=== PATIENT | male | born 1965 ===

== ENCOUNTER 2019-04-15 17:44 | Inpatient (IN) | payer OTHER ==
[~2019-04-15] VITALS: Ht 175.3 cm; Wt 95.5 kg
[2019-04-15] MEDS ORDERED: SERT50TA12 PO (17:55)
[2019-04-15] MEDS ORDERED: MECL-160 PO (17:55)
[2019-04-15] MEDS ORDERED: PRAZ2 PO (17:55)
[2019-04-15] MEDS ORDERED: RISP1 PO (17:55)
[2019-04-15] MEDS ORDERED: HYD25 PO (17:55)
[2019-04-15] MEDS ORDERED: SODIUM CHLORIDE 0.9% 1,000 ML IV ONE (18:15)
[2019-04-15] MEDS ORDERED: ONDANSETRON HCL 4 MG/2 ML VIAL IVP ONE (18:15)
[2019-04-15] MEDS ORDERED: MECLIZINE HCL 25 MG TABLET PO ONE (18:15)
[2019-04-15] MEDS ORDERED: ONDANSETRON HCL 4 MG/2 ML VIAL IVP PRN ×2 (18:30→22:30)
[2019-04-15] MEDS ORDERED: ACETAMINOPHEN 325 MG TABLET PO PRN ×2 (18:30→22:30)
[2019-04-15 18:43] LABS: BASOPHILS % (AUTO) 0.6 % (0.0-2.0); EOSINOPHILS % (AUTO) 0.1 % (1.0-6.0); HEMATOCRIT 46.3 % (41-53); HEMOGLOBIN 16.4 g/dL (13.5-17.5); LYMPHOCYTES # (AUTO) 0.7 K/uL (1.0-4.8); MEAN CORPUSCULAR HEMOGLOBIN 31.5 pg (26.0-34.0); MEAN CORPUSCULAR HGB CONC 35.4 G/dL (31.0-37.0); MEAN CORPUSCULAR VOLUME 89 fL (80-100); MONOCYTES # (AUTO) 0.6 K/uL (0.1-1.0); MONOCYTES % (AUTO) 5.7 % (2.0-9.0); NEUTROPHILS # (AUTO) 9.8 K/uL (1.8-7.7); NEUTROPHILS % (AUTO) 87.6 % (40.0-70.0); PLATELET COUNT (AUTO) 219 K/uL (150-450); RED CELL DISTRIBUTION WIDTH 13.3 % (11.5-14.5)
[2019-04-15 18:50] LABS: CALCIUM, TOTAL 9.2 mg/dL (8.8-10.5); CREATININE 1.37 mg/dL (0.60-1.30); POTASSIUM 3.9 mmol/L (3.5-5.1)
[2019-04-15 18:56] LABS: ALBUMIN 3.8 g/dL (3.4-5.0); BILIRUBIN,TOTAL 0.7 mg/dL (0.1-1.0)
[2019-04-15 19:05] VITALS: BP 162/92
[2019-04-15] MEDS: PRAZOSIN HCL 2 MG CAPSULE PO SCH (22:19)
[2019-04-15] MEDS ORDERED: BISACODYL 10 MG RECTAL RECTAL SUPPOSITORY PR PRN (22:30)
[2019-04-15] MEDS ORDERED: HYDROCODONE/ACETAMINOPHEN 5-325 MG TABLET PO PRN (22:30)
[2019-04-15] MEDS ORDERED: ZOLPIDEM TARTRATE 5 MG TABLET PO PRN (22:30)
[2019-04-15] MEDS ORDERED: MAGNESIUM HYDROXIDE SUSPENSION 30 ML UDCUP PO PRN (22:30)
[2019-04-15] MEDS ORDERED: MORPHINE SULFATE 2 MG/ML SYRINGE IVP PRN (22:30)
[2019-04-16] MEDS: HEPARIN SODIUM,PORCINE 5,000 UNITS/ML VIAL SQ SCH ×3 (00:59→15:48)
[2019-04-16 04:40] VITALS: BP 130/78
[2019-04-16 04:54] LABS: AMPHET/METH SCREEN,URINE NEGATIVE (NEGATIVE); BARBITURATE SCREEN, URINE NEGATIVE (NEGATIVE); BENZODIAZEPINES SCREEN,URINE NEGATIVE (NEGATIVE); CANNABINOID SCREEN,URINE NEGATIVE (NEGATIVE); COCAINE SCREEN,URINE NEGATIVE (NEGATIVE); METHADONE SCREEN, URINE NEGATIVE (NEGATIVE); OPIATE SCREEN,URINE NEGATIVE (NEGATIVE)
[2019-04-16 05:14] LABS: PHENCYCLIDINE SCREEN,URINE NEGATIVE (NEGATIVE)
[2019-04-16 07:45] VITALS: BP 142/87
[2019-04-16] MEDS: PANTOPRAZOLE SODIUM 40 MG DR TABLET PO SCH (08:03)
[2019-04-16] MEDS: RisperiDONE 1 MG TABLET PO SCH (08:03)
[2019-04-16] MEDS: DOCUSATE SODIUM 100 MG CAPSULE PO SCH ×2 (08:03→21:00)
[2019-04-16] MEDS: SERTRALINE HCL 50 MG TABLET PO SCH (08:04)
[2019-04-16] MEDS ORDERED: MECLIZINE HCL 25 MG TABLET PO SCH (09:00)
[2019-04-16] MEDS ORDERED: SODIUM CHLORIDE 0.9% 500 ML IV ONE (12:15)
[2019-04-16] MEDS ORDERED: SODIUM CHLORIDE 0.9% 1,000 ML ONE (12:24)
[2019-04-16 15:40] VITALS: BP 145/94
[2019-04-16] MEDS: MECLIZINE HCL 25 MG TABLET PO SCH ×2 (15:48→20:54)
[2019-04-16 15:50] LABS: APPEARANCE,URINE CLEAR (CLEAR); BILIRUBIN,URINE NEGATIVE (NEGATIVE); GLUCOSE, URINE (UA) NEGATIVE (NEGATIVE); KETONES,URINE TRACE mg/dL (NEGATIVE); LEUKOCYTE ESTERASE ,URINE NEGATIVE (NEGATIVE); NITRATE,URINE NEGATIVE (NEGATIVE); OCCULT BLOOD,URINE NEGATIVE (NEGATIVE); PH,URINE 8.5 (5.0-8.0); PROTEIN,URINE NEGATIVE (NEGATIVE); UROBILINOGEN,URINE 0.2 mg/dL (<=1.0)
[2019-04-16 16:01] LABS: BACTERIA,URINE None Seen /HPF (None Seen); RBC,URINE None Seen /HPF (0-2); SQUAMOUS EPITHELIAL CELL,UR Rare /LPF (None Seen); WBC,URINE 0-2 /HPF (0-5)
[2019-04-16 20:38] VITALS: BP 134/81
[2019-04-16] MEDS: PRAZOSIN HCL 2 MG CAPSULE PO SCH (20:54)
[2019-04-17] MEDS: HEPARIN SODIUM,PORCINE 5,000 UNITS/ML VIAL SQ SCH ×3 (00:27→15:31)
[2019-04-17 04:58] VITALS: BP 128/84
[2019-04-17 07:49] VITALS: BP 125/84
[2019-04-17] MEDS: MECLIZINE HCL 25 MG TABLET PO SCH ×3 (08:16→21:02)
[2019-04-17] MEDS: RisperiDONE 1 MG TABLET PO SCH (08:16)
[2019-04-17] MEDS: SERTRALINE HCL 50 MG TABLET PO SCH (08:16)
[2019-04-17] MEDS: DOCUSATE SODIUM 100 MG CAPSULE PO SCH ×2 (08:17→21:02)
[2019-04-17] MEDS: PANTOPRAZOLE SODIUM 40 MG DR TABLET PO SCH (08:17)
[2019-04-17 21:03] VITALS: BP 108/73
[2019-04-18] MEDS: PRAZOSIN HCL 2 MG CAPSULE PO SCH ×2 (00:03→20:27)
[2019-04-18] MEDS: HEPARIN SODIUM,PORCINE 5,000 UNITS/ML VIAL SQ SCH ×3 (00:03→16:43)
[2019-04-18 00:04] VITALS: BP 114/74
[2019-04-18 05:55] VITALS: BP 116/68
[2019-04-18 06:47] LABS: BASOPHILS % (AUTO) 0.6 % (0.0-2.0); EOSINOPHILS % (AUTO) 2.6 % (1.0-6.0); HEMATOCRIT 41.9 % (41-53); HEMOGLOBIN 14.9 g/dL (13.5-17.5); LYMPHOCYTES # (AUTO) 1.1 K/uL (1.0-4.8); LYMPHOCYTES % (AUTO) 17.7 % (22.0-44.0); MEAN CORPUSCULAR HEMOGLOBIN 31.9 pg (26.0-34.0); MEAN CORPUSCULAR HGB CONC 35.7 G/dL (31.0-37.0); MEAN CORPUSCULAR VOLUME 89 fL (80-100); MONOCYTES # (AUTO) 0.7 K/uL (0.1-1.0); MONOCYTES % (AUTO) 11.4 % (2.0-9.0); NEUTROPHILS # (AUTO) 4.1 K/uL (1.8-7.7); NEUTROPHILS % (AUTO) 67.7 % (40.0-70.0); PLATELET COUNT (AUTO) 176 K/uL (150-450); RED BLOOD CELL COUNT(AUTO) 4.68 MIL/uL (4.50-5.90); RED CELL DISTRIBUTION WIDTH 13.2 % (11.5-14.5)
[2019-04-18] MEDS: DOCUSATE SODIUM 100 MG CAPSULE PO SCH ×2 (08:16→20:27)
[2019-04-18] MEDS: ASPIRIN 81 MG CHEWABLE TABLET PO SCH (08:16)
[2019-04-18] MEDS: RisperiDONE 1 MG TABLET PO SCH (08:16)
[2019-04-18] MEDS: SERTRALINE HCL 50 MG TABLET PO SCH (08:16)
[2019-04-18] MEDS: MECLIZINE HCL 25 MG TABLET PO SCH ×3 (08:16→20:27)
[2019-04-18] MEDS: PANTOPRAZOLE SODIUM 40 MG DR TABLET PO SCH (08:16)
[2019-04-18 08:22] VITALS: BP 143/97
[2019-04-18 15:46] VITALS: BP 131/86
[2019-04-18 20:00] VITALS: BP 145/91
[2019-04-19] MEDS: HEPARIN SODIUM,PORCINE 5,000 UNITS/ML VIAL SQ SCH ×3 (01:57→15:41)
[2019-04-19 05:40] VITALS: BP 131/84
[2019-04-19] MEDS: DOCUSATE SODIUM 100 MG CAPSULE PO SCH ×2 (08:42→20:50)
[2019-04-19] MEDS: MECLIZINE HCL 25 MG TABLET PO SCH ×3 (08:42→20:50)
[2019-04-19] MEDS: PANTOPRAZOLE SODIUM 40 MG DR TABLET PO SCH (08:42)
[2019-04-19] MEDS: SERTRALINE HCL 50 MG TABLET PO SCH (08:42)
[2019-04-19] MEDS: ASPIRIN 81 MG CHEWABLE TABLET PO SCH (08:43)
[2019-04-19] MEDS: RisperiDONE 1 MG TABLET PO SCH (08:43)
[2019-04-19 09:04] VITALS: BP 127/80
[2019-04-19] MEDS ORDERED: ASPI81 PO (09:43)
[2019-04-19 15:51] VITALS: BP 138/96
[2019-04-19 20:11] VITALS: BP 132/89
[2019-04-19] MEDS: PRAZOSIN HCL 2 MG CAPSULE PO SCH (20:50)
[2019-04-20] MEDS: HEPARIN SODIUM,PORCINE 5,000 UNITS/ML VIAL SQ SCH (00:01)
[2019-04-20 05:07] VITALS: BP 135/90
== END 2019-04-20 06:41 | DRG 149 ==
LOC: EMS 17:49 → 6S 18:27
PROVIDERS: ADMIT Internal Medicine; ATTEND Internal Medicine
DX: R42 Dizziness and giddiness (principal); N17.9 Acute kidney failure, unspecified; F43.10 Post-traumatic stress disorder, unspecified; D72.829 Elevated white blood cell count, unspecified; F29 Unspecified psychosis not due to a substance or known physiological condition; H91.93 Unspecified hearing loss, bilateral; Z85.72 Personal history of non-Hodgkin lymphomas; Z92.21 Personal history of antineoplastic chemotherapy; Z79.899 Other long term (current) drug therapy
CPT/HCPCS: 70551; 80307; J1644; J2405; J7030; J7040